=== PATIENT | female | born 1985 | race Caucasian/White ===

== ENCOUNTER 2017-02-10 14:54 | Emergency (ER) | payer OTHER ==
[~2017-02-10] VITALS: Ht 165.1 cm; Wt 120.4 kg
[~2017-02-10 14:54] MED LIST: BACLOFEN10 MG PO; BACTRIM,SEPT1 TABLET PO; BUTISOL SODIUM30 MG PO; CELEXA20 MG PO; CLARITIN,ALAVAR10 MG PO; CLEOCIN150 MG PO; CLINDAMYCIN HC150 MG PO; FIORICET,ESG1 TABLET PO; FLEXERIL5 MG PO; HYCODAN SYRUP480 ML PO; IBUPROFEN800 MG PO; KLOR-CON SPRIN10 MEQ PO; MOBIC7.5 MG PO; MOTRIN600 MG PO; NAPROSYN500 MG PO; NOHOMEMEDS; ONDANSETRON HCL8 MG PO; ONDANSETRON ODT8 MG PO; PERCOCET 5/31 TABLET PO; PROVENTIL HFA6.7 GM IH; PYRIDIUM200 MG PO; TESSALON PERLE100 MG PO; TESSALON200 MG PO; TOPAMAX200 MG PO; ULTRAM50 MG PO; VENTOLIN HFA18 GM IH; VICODIN 5-3001 EACH PO; ZOFRAN ODT8 MG PO
[2017-02-10 14:58] VITALS: BP 150/85
== END 2017-02-10 18:57 | disposition left against medical advice (07) ==
LOC: EME 14:54
DX: R22.41 Localized swelling, mass and lump, right lower limb (principal); R22.42 Localized swelling, mass and lump, left lower limb; F17.200 Nicotine dependence, unspecified, uncomplicated; Z88.0 Allergy status to penicillin
CPT/HCPCS: 93970; 99281; 99283

== ENCOUNTER 2017-06-01 05:35 | Inpatient (IN) | payer OTHER ==
[~2017-06-01] VITALS: Ht 162.6 cm; Wt 113.0 kg
[2017-06-01 10:04] VITALS: BP 115/63
[2017-06-01 17:37] VITALS: BP 127/65
[2017-06-01 19:45] VITALS: BP 119/60
[2017-06-01 23:27] VITALS: BP 121/71
[2017-06-02 04:45] VITALS: BP 107/58
[2017-06-02 08:01] LABS: INTERNAL CONTROL VALID? YES
[2017-06-02 08:35] VITALS: BP 116/58
[2017-06-02 11:37] VITALS: BP 98/46
[2017-06-02 15:48] VITALS: BP 108/56
[2017-06-02 23:44] VITALS: BP 106/59
[2017-06-03 08:14] VITALS: BP 92/53
[2017-06-03] MEDS ORDERED: ENDOCET 5-3251 EACH PO (14:25)
[2017-06-03] MEDS ORDERED: CYCLOBENZAPRINE10 MG PO (14:25)
== END 2017-06-03 15:05 | disposition home or self-care (01) | DRG 460 ==
LOC: ENRESERV 05:35 → 2SOUTH 09:01 → 3EAST 09:01 → 2SOUTH 10:12 → ENRESERV 15:19 → 3EAST 17:22
PROVIDERS: Neuromusculoskeletal Medicine, Sports Medicine
PROC: 0SG10AJ Fusion of 2 or more Lumbar Vertebral Joints with Interbody Fusion Device, Posterior Approach, Anterior Column, Open Approach (ICD-10-PCS; principal; 2017-06-01)
DX: M47.816 Spondylosis without myelopathy or radiculopathy, lumbar region (principal); M43.06 Spondylolysis, lumbar region; E66.01 Morbid (severe) obesity due to excess calories; M51.16 Intervertebral disc disorders with radiculopathy, lumbar region; M46.96 Unspecified inflammatory spondylopathy, lumbar region; M47.26 Other spondylosis with radiculopathy, lumbar region; M48.06 Spinal stenosis, lumbar region; F17.200 Nicotine dependence, unspecified, uncomplicated; G43.909 Migraine, unspecified, not intractable, without status migrainosus; E11.9 Type 2 diabetes mellitus without complications; G62.9 Polyneuropathy, unspecified; Z68.41 Body mass index [BMI] 40.0-44.9, adult; Z90.49 Acquired absence of other specified parts of digestive tract; Z83.3 Family history of diabetes mellitus
CPT/HCPCS: 72100; 76000; 84703; 86850; 86900; 86901; C1821; J0330; J1170; J1580; J2250; J2405; J2710; J2930; J3010; J3370; J3480; S0020

== ENCOUNTER 2017-09-07 15:22 | Emergency (ER) | payer OTHER ==
[~2017-09-07] VITALS: Ht 162.6 cm; Wt 118.6 kg
[~2017-09-07 15:22] MED LIST changes: +CYCLOBENZAPRINE10 MG PO; +ENDOCET 5-3251 EACH PO
[2017-09-07] MEDS ORDERED: NAPROSYN500 MG PO (16:18)
[2017-09-07] MEDS ORDERED: ACETAMINOPHEN-1 EAC1 PO (16:18)
[2017-09-07] MEDS ORDERED: MOTRIN600 MG PO (16:21)
[2017-09-07] MEDS ORDERED: BENZ O STHETIC TP (16:21)
[2017-09-07 16:45] VITALS: BP 170/86
== END 2017-09-07 16:46 | disposition home or self-care (01) ==
LOC: EME 15:22
DX: K02.9 Dental caries, unspecified (principal); Z88.0 Allergy status to penicillin; Z88.1 Allergy status to other antibiotic agents; Z88.6 Allergy status to analgesic agent
CPT/HCPCS: 99281; 99284